=== PATIENT | male | born 1990 | race Caucasian/White ===

== ENCOUNTER 2021-06-06 10:16 | Emergency (ER) | payer OTHER ==
[~2021-06-06] VITALS: Ht 182.9 cm; Wt 99.1 kg
[2021-06-06] MEDS ORDERED: KETOROLAC TROMETHAMINE 30 MG/ML VIAL IM ONE (11:30)
[2021-06-06 12:40] VITALS: BP 122/76
[2021-06-06] MEDS ORDERED: CYCL-397 PO (12:58)
== END 2021-06-06 13:03 | disposition home or self-care (01) ==
LOC: EMS 10:16
DX: G89.29 Other chronic pain (principal); M54.9 Dorsalgia, unspecified
CPT/HCPCS: 72100; 96372; 99283; J1885